=== PATIENT | female | born 1980 | race Caucasian/White ===

== ENCOUNTER 2016-12-03 16:07 | Emergency (ER) | payer OTHER ==
[~2016-12-03] VITALS: Ht 172.7 cm; Wt 78.2 kg
[~2016-12-03 16:07] MED LIST: THYROID PILL PO
[2016-12-03 16:27] VITALS: TEMP 36.6; Ht 172.7 cm; Wt 78.2 kg
--- NOTE | 2016-12-03 17:14 | EMERGENCY ROOM VISIT NOTE ---
History Report prepared by Jameel: Luis Navarrete Under the Supervision of: Dr. Aurora Rodrigues D.O. First contact with patient: 16:36 Chief Complaint: ABDOMINAL PAIN Stated Complaint: CRAMPS IN HER LOWER STOMACH Nursing Triage Summary: Abdominal pain since Wednesday and diarrhea. Denies nausea/vomiting. Verbalizes slight blood in stool. Also verbalizes pain when urinating. Pt requesting Female doc and malagasy sign language interpreter. History of Present Illness The patient is a 36 year old female with a history of hemorrhoids who presents to the Emergency Room with complaints of persistent low abdominal pain with bowel movements that started 3 days ago. The patient does not speak Ecuadorean. Her translates as the fire suppression captain device was not working for malagasy. Per the patient's , the patient has had several episodes of diarrhea as well, with some blood in her stool. States the blood was bright red and only with wiping, no blood mixed in the stool or in the toilet water. The patient has not had any blood in her stool today and hasn't had any diarrhea today. Her abdominal pain radiates to her lower back, and she has no pain at rest. She notes that eating does bring on her pain, and having a bowel movement relieves her pain somewhat. She has had some episodes of nausea and sweating as well. The patient adds that she has had some pain with urinating, but has a normal color. She says that eating or drinking does not make her nauseous. Any vomiting or fevers were denied on behalf of the patient. The patient's states that the patient has not eaten any atypical foods the past few days. Any recent long car trips or plane rides were denied. The patient is currently in the middle of her menstrual period, but it is almost finished. History limited secondary to language barrier. Source of History: patient, spouse/significant other History Limited By: language Onset: 3 days ago Position: abdomen (low) Timing: other (persistent) Modifying Factors (Worsening): eating, movement Modifying Factors (Relieving): rest Associated Symptoms: + diaphoresis, + nausea, + back pain (low), + hematochezia, + diarrhea, + urinary symptoms (pain with urination but normal color), No fevers, No vomiting Note: No other associated symptoms noted. Review of Systems See HPI for pertinent positives & negatives. A total of 10 systems reviewed and were otherwise negative. Past Medical & Surgical Medical Problems: (1) Hemorrhoids Past medical and surgery history limited secondary to language barrier. Family History Family history limited secondary to language barrier. Social History Smoking Status: Never Smoker Marital Status: Housing Status: lives with family Occupation Status: other (housewife) Current/Historical Medications Scheduled Dicyclomine Hcl (Bentyl), 20 MG PO TID Folic Acid (Folic Acid), 1 TAB PO DAILY Multivitamins/Minerals (Mvi With Minerals), 1 TAB PO DAILY Allergies Coded Allergies: No Known Allergies (Unverified , 03/13/16) Physical Exam Vital Signs Date Time Temp Pulse Resp B/P (MAP) Pulse Ox O2 Delivery O2 Flow Rate FiO2 12/03/16 20:24 78 20 118/76 98 12/03/16 18:06 71 18 121/73 97 Room Air 12/03/16 16:27 36.6 90 18 126/80 95 Room Air Physical Exam GENERAL: alert, well appearing, well nourished, no distress, non-toxic EYE EXAM: normal conjunctiva, PERRL and EOM's grossly intact OROPHARYNX: no exudate, no erythema, lips, buccal mucosa, and tongue normal and mucous membranes are moist NECK: supple, no nuchal rigidity, no adenopathy, non-tender LUNGS: Clear to auscultation. Normal chest wall mechanics HEART: no murmurs, S1 normal and S2 normal ABDOMEN: mild low abdominal tenderness. Abdomen soft, normo-active bowel sounds , no masses, no organomegaly, no rebound or guarding, dull to percussion BACK: Back is symmetrical on inspection and there is no deformity, no midline tenderness, no CVA tenderness. SKIN: no rashes and no bruising UPPER EXTREMITIES: upper extremities are grossly normal. LOWER EXTREMITIES: No pitting edema. NEURO EXAM: Normal sensorium, cranial nerves II-XII grossly intact, normal speech, no gross weakness of arms, no gross weakness of legs. No drift. Finger to nose intact. Gross sensation intact. Medical Decision & Procedures ER Provider Diagnostic Interpretation: X-ray results have been interpreted by the radiologist and reviewed by me. ABDOMEN 2VIEW W/PA CHEST RTN CLINICAL HISTORY: abd pain pain COMPARISON STUDY: No previous studies for comparison. FINDINGS: The soft tissues, psoas shadows, renal outlines and intestinal gas pattern appear normal. There is no evidence for bowel obstruction. There is no evidence for free intraperitoneal air. No abnormal abdominal calcifications are seen. A frontal view of the chest was performed and is unremarkable. IMPRESSION: Normal study. The above report was generated using voice recognition software. It may contain grammatical, syntax or spelling errors. Electronically signed by: Ellis Stuart M.D. 12/03/2016 5:59 PM Dictated Date/Time: 12/03/2016 5:58 PM Laboratory Results 12/03/16 17:30 Red Blood Count 4.79, Mean Corpuscular Volume 88.1, Mean Corpuscular Hemoglobin 29.2, Mean Corpuscular Hemoglobin Concent 33.2, Mean Platelet Volume 9.5, Neutrophils (%) (Auto) 62.0, Lymphocytes (%) (Auto) 27.0, Monocytes (%) (Auto) 7.8, Eosinophils (%) (Auto) 2.7, Basophils (%) (Auto) 0.4, Neutrophils # (Auto) 4.77, Lymphocytes # (Auto) 2.08, Monocytes # (Auto) 0.60, Eosinophils # (Auto) 0.21, Basophils # (Auto) 0.03 12/03/16 17:30 Test 12/03/16 17:30 12/03/16 17:33 12/03/16 17:36 White Blood Count 7.70 K/uL (4.8-10.8) Red Blood Count 4.79 M/uL (4.2-5.4) Hemoglobin 14.0 g/dL (12.0-16.0) Hematocrit 42.2 % (37-47) Mean Corpuscular Volume 88.1 fL (80-100) Mean Corpuscular Hemoglobin 29.2 pg (25-34) Mean Corpuscular Hemoglobin Concent 33.2 g/dl (32-36) Platelet Count 235 K/uL (130-400) Mean Platelet Volume 9.5 fL (7.4-10.4) Neutrophils (%) (Auto) 62.0 % Lymphocytes (%) (Auto) 27.0 % Monocytes (%) (Auto) 7.8 % Eosinophils (%) (Auto) 2.7 % Basophils (%) (Auto) 0.4 % Neutrophils # (Auto) 4.77 K/uL (1.4-6.5) Lymphocytes # (Auto) 2.08 K/uL (1.2-3.4) Monocytes # (Auto) 0.60 K/uL (0.11-0.59) Eosinophils # (Auto) 0.21 K/uL (0-0.5) Basophils # (Auto) 0.03 K/uL (0-0.2) RDW Standard Deviation 39.3 fL (36.4-46.3) RDW Coefficient of Variation 12.3 % (11.5-14.5) Immature Granulocyte % (Auto) 0.1 % Immature Granulocyte # (Auto) 0.01 K/uL (0.00-0.02) Anion Gap 6.0 mmol/L (3-11) Est Creatinine Clear Calc Drug Dose 113.5 ml/min Estimated GFR () 117.8 Estimated GFR (Non- 101.6 BUN/Creatinine Ratio 14.7 (10-20) Lactic Acid Level 1.2 mmol/L (0.4-2.0) Calcium Level 9.4 mg/dl (8.5-10.1) Total Bilirubin 0.9 mg/dl (0.2-1) Aspartate Amino Transf (AST/SGOT) 17 U/L (15-37) Alanine Aminotransferase (ALT/SGPT) 36 U/L (12-78) Alkaline Phosphatase 48 U/L (45-117) Total Protein 7.9 gm/dl (6.4-8.2) Albumin 3.8 gm/dl (3.4-5.0) Globulin 4.1 gm/dl (2.5-4.0) Albumin/Globulin Ratio 0.9 (0.9-2) Lipase 141 U/L (73-393) Urine Color YELLOW Urine Appearance CLEAR (CLEAR) Urine pH 7.0 (4.5-7.5) Urine Specific [place] 1.010 (1.000-1.030) Urine Protein NEG (NEG) Urine Glucose (UA) NEG (NEG) Urine Ketones NEG (NEG) Urine Occult Blood TRACE (NEG) Urine Nitrite NEG (NEG) Urine Bilirubin NEG (NEG) Urine Urobilinogen NEG (NEG) Urine Leukocyte Esterase NEG (NEG) Urine WBC (Auto) 0 /hpf (0-5) Urine RBC (Auto) 0-4 /hpf (0-4) Urine Hyaline Casts (Auto) 0 /lpf (0-5) Urine Epithelial Cells (Auto) 0-5 /lpf (0-5) Urine Bacteria (Auto) NEG (NEG) Human Chorionic Gonadotropin, Qual NEG (NEG) Date/Time Source Procedure Growth Status 12/03/16 18:40 Stool C.difficile Toxin B Gene (PCR) - Final No C. difficile toxin B gene detected Complete Laboratory results per my review. Medications Administered Medications (Trade) Dose Ordered Sig/Vega Route Start Time Stop Time Status Last Admin Dose Admin Dicyclomine HCl (Bentyl Tab) 20 mg NOW STAT PO 12/03/16 17:21 12/03/16 17:24 DC 12/03/16 17:43 20 MG Ketorolac Tromethamine (Toradol Inj) 30 mg NOW STAT IV 12/03/16 19:11 12/03/16 19:12 DC 12/03/16 19:15 30 MG ED Course 1648: The patient was evaluated in room C9. A complete history and physical exam was performed. 1720: Ordered Bentyl Tab 20 mg PO. 1902: I reevaluated the patient and her pain is a little better but not totally gone. 1910: Ordered Toradol Inj 30 mg IV. 1945: Upon reevaluation, the patient is feeling better. I discussed the findings and the treatment plan with the patient and her . They verbalize agreement and understanding. The patient was discharged home. Medical Decision Differential diagnosis: Etiologies such as appendicitis, diverticulitis, PUD, biliary pathology, UTI, pancreatitis, obstruction, mesenteric ischemia, aortic pathology, infections, inflammatory bowel disease, renal colic, as well as others were entertained. Medication Reconciliation: I attest that I have personally reviewed the patient' s current medication list. She does not take any daily medications. Blood pressure screening: Patient was found to have normal blood pressure on screening and does not require follow-up. Pt well appearing here. No diarrhea today. Labs and imaging reassuring, VS stable. Likely viral syndrome. Low suspicion and low risk for mesenteric ischemia, volvulus, sbo. Bleeding likely from hemorrhoids based on description , doubt colitis or IBD. Did not feel required CT given no recurrent diarrhea here, no leukocytosis, no fevers, stable H/H. Pt then has soft stool just before DC, cultures sent as a precaution. Pt tolerating po. [place] improved following meds here. Discussed f/u with PCP, discussed more concerning sx including sx to watch/return for, she and verbalized understanding and were agreeable with plan. Impression Primary Impression: Diarrhea Additional Impression: Abdominal pain Scribe Attestation The scribe's documentation has been prepared under my direction and personally reviewed by me in its entirety. I confirm that the note above accurately reflects all work, treatment, procedures, and medical decision making performed by me. Departure Information Dispostion Home / Self-Care Prescriptions Dicyclomine Hcl (BENTYL) 20 Mg Tab 20 MG PO TID for Pain, #20 TAB Prov: Aurora Rodrigues, DO 12/03/16 Referrals [facility] (PCP) Patient Instructions [facility] Additional Instructions If you have any worsening pain, recurrent blood with a bowel movement, develop fevers/chills, vomiting, or you have any other new or concerning symptoms, please return to the emergency room. Your stool was sent for culture. If the results are abnormal, you will receive a phone call regarding the results and any additional treatments that may be necessary. Please otherwise follow-up with your regular doctor for a recheck. Problem Qualifiers Primary Impression: Diarrhea Diarrhea type: unspecified type Qualified Codes: R19.7 - Diarrhea, unspecified Additional Impression: Abdominal pain Abdominal location: lower abdomen, unspecified Qualified Codes: R10.30 - Lower abdominal pain, unspecified
[2016-12-03] MEDS ORDERED: DICYCLOMINE HCL 20 MG TAB PO STA (17:21)
[2016-12-03] MEDS ORDERED: MULT-513 PO (17:25)
[2016-12-03] MEDS ORDERED: FLV1 PO (17:25)
[2016-12-03 17:43] LABS: BASO % 0.4 %; BASO ABS # 0.03 K/uL (0-0.2); COMPLETE YES; EOS % 2.7 %; HEMATOCRIT 42.2 % (37-47); IG% 0.1 %; LYMPH ABS # 2.08 K/uL (1.2-3.4); MEAN CELL VOLUME 88.1 fL (80-100); MEAN CORPUSCULAR HEMOGLOBIN 29.2 pg (25-34); MEAN CORPUSCULAR HGB CONC 33.2 g/dl (32-36); MEAN PLATELET VOLUME 9.5 fL (7.4-10.4); MONO % 7.8 %; PLATELET COUNT 235 K/uL (130-400); RED BLOOD COUNT 4.79 M/uL (4.2-5.4)
[2016-12-03 17:49] LABS: URINE APPEARANCE CLEAR (CLEAR); URINE BILIRUBIN NEG (NEG); URINE COLOR YELLOW; URINE EPITHELIAL CELL AUTO 0-5 /lpf (0-5); URINE NITRITE NEG (NEG); UROBILINOGEN NEG (NEG); ZZUR CULT IF INDIC CLEAN CATCH NO
[2016-12-03 17:59] LABS: MANUAL MICROSCOPIC REQUIRED? NO; REVIEW REQ? NO
--- NOTE | 2016-12-03 18:01 | DIAGNOSTIC IMAGING REPORT ---
ABDOMEN 2VIEW W/PA CHEST RTN CLINICAL HISTORY: abd pain pain COMPARISON STUDY: No previous studies for comparison. FINDINGS: The soft tissues, psoas shadows, renal outlines and intestinal gas pattern appear normal. There is no evidence for bowel obstruction. There is no evidence for free intraperitoneal air. No abnormal abdominal calcifications are seen. A frontal view of the chest was performed and is unremarkable. IMPRESSION: Normal study. The above report was generated using voice recognition software. It may contain grammatical, syntax or spelling errors. Electronically signed by: Ellis Stuart M.D. 12/03/2016 5:59 PM Dictated Date/Time: 12/03/2016 5:58 PM
[2016-12-03 18:02] LABS: BUN/CREATININE RATIO 14.7 (10-20); CALCIUM 9.4 mg/dl (8.5-10.1); CREATININE 0.76 mg/dl (0.60-1.20); POTASSIUM 3.7 mmol/L (3.5-5.1)
[2016-12-03 18:05] LABS: ALB/GLOB RATIO 0.9 (0.9-2)
[2016-12-03] MEDS ORDERED: KETOROLAC TROMETHAMINE 30 MG/ML VIAL IV STA (19:11)
[2016-12-03] MEDS ORDERED: DICY20TA35 PO (19:55)
[2016-12-03 20:15] LABS: PREG INTERNAL NEGATIVE QC NEG CLEAR BACKGROUND; PREG INTERNAL POSITIVE QC POS CONTROL LINE
[2016-12-03 20:24] VITALS: BP 118/76; PULSE 78; O2SAT 98
== END 2016-12-03 20:25 | disposition home or self-care (01) ==
LOC: C.EDB 16:09 → C.EDC 20:25
DX: R10.30 Lower abdominal pain, unspecified (principal); R19.7 Diarrhea, unspecified

== ENCOUNTER → 2017-02-18 | Outpatient (CLI) | payer OTHER ==
[~2017-02-18] MED LIST changes: +FLV1 PO; +MULT-513 PO; +SINCALIDE INJ 1.5 MCG in SODIUM CHLORIDE 0.9% 100ML 100 ML IV ONE; -THYROID PILL PO
--- NOTE | 2017-02-18 12:06 | DIAGNOSTIC IMAGING REPORT ---
HEPATOBILIARY EF IMAGING HISTORY: Pain. Nausea. RIGHT UPPER QUADRANT ABDOMINAL PAIN COMPARISON: None. TECHNIQUE: Immediately following the intravenous administration of 5 mCi Tc-99m Choletec, dynamic anterior abdominal imaging pre/post 5 mcg of Kinevac was performed. FINDINGS: Uniform hepatic tracer accumulation is shown. Prompt intrahepatic biliary excretion is seen. The gallbladder, common bile duct, and small bowel are all visualized by 60 minutes. This appearance represents the normal sequence of biliary excretion. The gallbladder ejection fraction following administration of Kinevac was 64 % (normal >35%). IMPRESSION: 1. No evidence for cystic duct obstruction. 2. Gallbladder ejection fraction calculated to be 64% 3. Slight delay in isotope transit to the small bowel suggesting mild distal common duct sphincter dysfunction The above report was generated using voice recognition software. It may contain grammatical, syntax or spelling errors. Electronically signed by: Ellis Stuart M.D. 02/18/2017 12:05 PM Dictated Date/Time: 02/18/2017 12:03 PM
== END | disposition home or self-care (01) ==
LOC: C.NUCL 02-09 08:08
PROVIDERS: ATTEND Physician Assistant Medical
DX: R10.11 Right upper quadrant pain (principal)

== ENCOUNTER → 2017-09-13 | Outpatient (CLI) | payer OTHER ==
[~2017-09-13] MED LIST changes: -FLV1 PO; -MULT-513 PO; +POLY335019 PO; -SINCALIDE INJ 1.5 MCG in SODIUM CHLORIDE 0.9% 100ML 100 ML IV ONE
[2017-09-13 12:38] LABS: BASO % 0.6 %; BASO ABS # 0.04 K/uL (0-0.2); EOS % 1.7 %; EOS ABS # 0.12 K/uL (0-0.5); HEMATOCRIT 40.1 % (37-47); HEMOGLOBIN 13.6 g/dL (12.0-16.0); IG# 0.01 K/uL (0.00-0.02); LYMPH % 22.3 %; MEAN CORPUSCULAR HEMOGLOBIN 29.5 pg (25-34); MEAN CORPUSCULAR HGB CONC 33.9 g/dl (32-36); MEAN PLATELET VOLUME 9.8 fL (7.4-10.4); MONO % 6.8 %; MONO ABS # 0.49 K/uL (0.11-0.59); NEUT % 68.5 %; PLATELET COUNT 233 K/uL (130-400); RED CELL DISTRIBUTION WIDTH CV 12.5 % (11.5-14.5); RED CELL DISTRIBUTION WIDTH SD 40.4 fL (36.4-46.3); WHITE BLOOD COUNT 7.16 K/uL (4.8-10.8)
== END | disposition home or self-care (01) ==
LOC: C.LAB1850 11:08
PROVIDERS: ATTEND Obstetrics & Gynecology
DX: O09.521 Supervision of elderly multigravida, first trimester (principal); Z3A.00 Weeks of gestation of pregnancy not specified

== ENCOUNTER → 2017-09-15 | Outpatient (CLI) | payer OTHER | END | disposition home or self-care (01) | LOC: C.LAB1850 09:29 | PROVIDERS: ATTEND Obstetrics & Gynecology | DX: O20.0 Threatened abortion (principal); Z3A.00 Weeks of gestation of pregnancy not specified ==